=== PATIENT | male | born 1940 | race Caucasian/White ===

== ENCOUNTER → 2017-10-30 | Outpatient (CLI) | payer MEDICARE ==
--- NOTE | 2017-10-30 13:30 | CT ---
EXAMINATION TYPE: CT abdomen pelvis w con DATE OF EXAM: 10/30/2017 COMPARISON: CT abdomen and pelvis October 06, 2014. HISTORY: Renal and Prostate CA, history of surgical removal of both. CT DLP: 306.4 mGycm, Automated Exposure Control for Dose Reduction was Utilized. CONTRAST: CT scan of the abdomen and pelvis is performed with oral and with IV Contrast, patient injected with 100 mL of Isovue 300. FINDINGS: Patient has very little abdominal fat making evaluation suboptimal. LUNG BASES: Linear scarring in the lingula axial image 6 is redemonstrated. LIVER/GB: No significant abnormality is appreciated. PANCREAS: No significant abnormality is seen. SPLEEN: No significant abnormality is seen. ADRENALS: No significant abnormality is seen. KIDNEYS: Surgical clips from right-sided nephrectomy are redemonstrated. BOWEL: Oral contrast reaches mid to distal transverse colon level. There is no suspicious small or la rge bowel dilatation. Diverticula are seen throughout the colon most prominent in the sigmoid colon. There is no CT evidence for acute diverticulitis. PROSTATE/SEMINAL VESICLES: Prostate gland is surgically absent. Numerous clips in the lower pelvis ar e noted. LYMPH NODES: No greater than 1cm abdominal or pelvic lymph nodes are appreciated. OSSEOUS STRUCTURES: There is facet arthropathy lower lumbar levels. OTHER: No significant additional abnormality is seen. IMPRESSION: Overall stable findings from prior exam, surgical changes from right nephrectomy and pros tatectomy. No new suspicious mass or adenopathy is seen to suggest neoplastic recurrence.
== END | disposition home or self-care (01) ==
LOC: RADCTMAIN 10:47
PROVIDERS: ATTEND Urology
DX: C61 Malignant neoplasm of prostate (principal); C64.1 Malignant neoplasm of right kidney, except renal pelvis; Z90.5 Acquired absence of kidney; Z90.79 Acquired absence of other genital organ(s)
CPT/HCPCS: 82565; 84520; 74177; 36415; Q9967

== ENCOUNTER → 2019-01-11 | Outpatient (CLI) | payer MEDICARE ==
[2019-01-11 09:54] LABS: Potassium 4.6 mmol/L (3.5-5.1)
[2019-01-11 09:55] LABS: HCT 42.6 % (39.0-53.0); HGB 13.3 gm/dL (13.0-17.5); MCH 29.8 pg (25.0-35.0); MCHC 31.3 g/dL (31.0-37.0); MCV 95.3 fL (80.0-100.0); Mean Platelet Volume 8.5; Platelet Count 341 k/uL (150-450); RBC 4.47 m/uL (4.30-5.90); RDW 13.9 % (11.5-15.5); WBC 8.2 k/uL (3.8-10.6)
== END | disposition home or self-care (01) ==
LOC: LABPAT 09:07
PROVIDERS: ATTEND Internal Medicine Interventional Cardiology
DX: Z01.812 Encounter for preprocedural laboratory examination (principal); I25.10 Atherosclerotic heart disease of native coronary artery without angina pectoris
CPT/HCPCS: 36415; 80051; 82565; 84520; 85027

== ENCOUNTER 2019-01-13 06:19 | Day surgery (SDC) | payer MEDICARE ==
[2019-01-12 11:12] VITALS: BMI 17.8
[2019-01-13] MEDS ORDERED: ASPIRIN 325 MG TAB PO STA (06:29)
[2019-01-13] MEDS ORDERED: NITROGLYCERIN SL TABS 0.4 MG TAB SUBLINGUAL PRN ×3 (06:29→09:04)
[2019-01-13] MEDS ORDERED: ALPRAZolam 0.5 MG TAB PO PRN (06:29)
[2019-01-13] MEDS ORDERED: ATORVASTATIN 80 MG TAB PO STA (06:29)
[2019-01-13] MEDS ORDERED: SODIUM CHLORIDE 0.9% 1,000 ML in EMPTY BAG 1 BAG IV ONE (06:29)
[2019-01-13] MEDS ORDERED: ALPRAZolam 0.25 MG TAB PO PRN (06:29)
[2019-01-13] MEDS ORDERED: MIDAZOLAM (PF) 2 MG/2 ML VIAL IVP ONE (07:35)
[2019-01-13] MEDS ORDERED: LIDOCAINE 1% INJ 10MG/ML (20 ML MDV) SQ ONE (07:38)
[2019-01-13] MEDS ORDERED: VERAPAMIL SYRINGE (5 MG/10 ML) INTRAARTER ONE (07:40)
[2019-01-13] MEDS: HEPARIN SODIUM 1,000 UN/ML (10ML VL) IV ONE ×2 (07:42→08:20)
[2019-01-13] MEDS ORDERED: TICAGRELOR 90 MG TAB PO ONE (07:42)
[2019-01-13] MEDS ORDERED: NITROGLYCERIN 1000MCG/10ML SYRINGE INTRACORON ONE (08:08)
[2019-01-13] MEDS ORDERED: BIVALIRUDIN 250 MG VIAL IV ONE (08:15)
[2019-01-13] MEDS ORDERED: SODIUM CHLORIDE 0.9% 50 ML BAG ONE (08:15)
[2019-01-13] MEDS ORDERED: IOPAMIDOL-370 100ML BTL INJ ONE (08:18)
[2019-01-13] MEDS ORDERED: IOPAMIDOL-370 50ML BTL INJ ONE (08:19)
[2019-01-13] MEDS ORDERED: RX INFO: IV CONTRAST WAS GIVEN 1 EACH MISC MISCELLANE PRN (08:23)
[2019-01-13] MEDS ORDERED: ATROPINE SULFATE 0.1 MG/ML 10ML SYRINGE IV PRN (08:23)
[2019-01-13] MEDS ORDERED: MAG HYDROX/AL HYDROX/SIMETH 30 ML CUP PO PRN (08:23)
[2019-01-13] MEDS ORDERED: ZOLPIDEM 5 MG TAB PO PRN (08:23)
[2019-01-13] MEDS: SODIUM CHLORIDE 0.9% 1,000 ML IV SCH ×2 (08:55→19:35)
[2019-01-13] MEDS: ISOSORBIDE MONONITRATE ER 30 MG TAB.ER.24H PO SCH (09:26)
[2019-01-13] MEDS: ASPIRIN 81 MG PO SCH (09:26)
[2019-01-13] MEDS: METOPROLOL TARTRATE 12.5 MG TAB PO SCH (09:27)
[2019-01-13] MEDS: NICOTINE 21MG/24HR PATCH TRANSDERM SCH (09:40)
[2019-01-13] MEDS: SYMBICORT 160-4.5 MCG INHALER INHALATION SCH ×2 (10:06→19:00)
--- NOTE | 2019-01-13 11:12 | PTCA ---
PERCUTANEOUSTRANS CORORONARY ANGIOGRAPHY DATE OF SERVICE: 01/13/2019. PROCEDURES: 1. PTCA and stenting of calcified mid LAD with a drug-eluting stent. 2. PTCA and stenting of mid circumflex coronary artery with a drug-eluting stent. PERFORMED BY: Dr. Gladis Mejia. Moderate conscious sedation time was 40 minutes. Patient was administered Versed. His oxygen saturation, hemodynamics and EKG were monitored closely. CLINICAL INFORMATION: Mr. John Paul Baker is a 78-year-old gentleman with history of hypertension, hyperlipidemia, smoking and COPD who presented with unstable angina to [facility] last week, underwent cardiac cath which revealed total occlusion of the dominant RCA with _rich____collateralization of the left system. He had a mid LAD lesion of 80% in beyond heavily calcified area and also had a mid circumflex lesion of 70% to 75%. He was advised intervention and brought in for the procedure electively after due discussion regarding risks, benefits, and options. This gentleman has a single kidney with history of right nephrectomy in 2013 because of renal cell cancer. His creatinine was good. He was orally and intravenously hydrated and brought in for the procedure. PROCEDURE NOTE: Under local anesthesia and strict aseptic precautions, a 6-Divehi introducer was placed in the right radial artery. I used a JL3.5 curve left guide catheter to cannulate the left coronary artery. A run-through wire was used to cross the lesion in the LAD. A 2.5 caliber 12 mm NC Trek balloon was used to pre-dilate the mid LAD lesion. A 2.75 caliber 12 mm Xience stent was deployed at 13 atmospheres. Patient did not have any significant symptoms or EKG changes, but excellent angiographic result was achieved. Subsequently I turned my attention to the circumflex. The same run-through wire was used to cross the circumflex without predilatation. A 2.5 caliber 8 mm Xience stent was deployed at 13 atmospheres. Patient had mild discomfort in the chest but no EKG changes. Excellent angiographic result was achieved without complication. The sheath was then taken out and TR band applied as per protocol with saturation the fingers of the right hand of 93%. Patient tolerated procedure well without complications. The patient's LAD was stented with a drug-eluting stent and mid circumflex was stented with a drug-eluting stent. Excellent angiographic result was achieved. Results were discussed with the patient and family and I expect that he will be discharged tomorrow if he remains stable. MMJEANETHL / PATN: [id number] / ALEXI
[2019-01-13] MEDS ORDERED: amLODIPine 5 MG TAB PO SCH (12:00)
[2019-01-13] MEDS: ALBUTEROL NEBULIZED 2.5 MG/3 ML INHALATION PRN ×2 (15:36→19:00)
[2019-01-13] MEDS ORDERED: LOSARTAN 25 MG TAB PO SCH (21:00)
[2019-01-13] MEDS ORDERED: ATORVASTATIN 40 MG TAB PO SCH (21:00)
[2019-01-13 21:20] VITALS: RESP 18
[2019-01-14 07:15] LABS: African American GFR (CKD) >90 (>60 ml/min/1.73 sqM); Anion Gap 8 mmol/L; Blood Urea Nitrogen 14 mg/dL (9-20); Calcium 9.1 mg/dL (8.4-10.2); Carbon Dioxide 24 mmol/L (22-30); Chloride 109 mmol/L (98-107); Glucose 88 mg/dL (74-99); Potassium 4.1 mmol/L (3.5-5.1); Sodium 141 mmol/L (137-145)
[2019-01-14] MEDS: NICOTINE 21MG/24HR PATCH TRANSDERM SCH (08:22)
[2019-01-14 08:23] LABS: Basophils # (A) 0.1 k/uL (0-0.2); Basophils % (A) 1 %; Eosinophils # (A) 0.2 k/uL (0-0.7); Eosinophils % (A) 2 %; HGB 13.1 gm/dL (13.0-17.5); Lymphocytes # (A) 1.3 k/uL (1.0-4.8); Lymphocytes % (A) 14 %; MCH 30.3 pg (25.0-35.0); MCHC 32.8 g/dL (31.0-37.0); MCV 92.4 fL (80.0-100.0); Mean Platelet Volume 7.3; Monocytes # (A) 0.7 k/uL (0-1.0); Monocytes % (A) 8 %; Neutrophils # (A) 6.8 k/uL (1.3-7.7); Neutrophils % (A) 72 %; Platelet Count 355 k/uL (150-450); RBC 4.33 m/uL (4.30-5.90); RDW 14.1 % (11.5-15.5); WBC 9.4 k/uL (3.8-10.6)
[2019-01-14] MEDS: ASPIRIN 81 MG PO SCH (08:23)
[2019-01-14] MEDS: METOPROLOL TARTRATE 12.5 MG TAB PO SCH (08:24)
[2019-01-14] MEDS: ISOSORBIDE MONONITRATE ER 30 MG TAB.ER.24H PO SCH (08:24)
[2019-01-14] MEDS: SYMBICORT 160-4.5 MCG INHALER INHALATION SCH (08:49)
[2019-01-14 08:52] VITALS: BP 126/81; PULSE 64; TEMP 97.8
[2019-01-14] MEDS ORDERED: TICAGRELOR 90 MG TAB PO SCH (09:00)
[2019-01-14] MEDS ORDERED: ASPIRIN 81 MG PO SCH (09:00)
--- NOTE | 2019-01-14 12:22 | DS ---
DISCHARGE SUMMARY DATE OF ADMISSION: 01/13/2019 DATE OF DISCHARGE: 01/14/2019 DIAGNOSES: 1. Unstable angina. 2. Hypertension. 3. Hyperlipidemia. PROCEDURES PERFORMED: PTCA and stenting of mid LAD with a drug-eluting stent. PTCA and stenting of mid circumflex with a drug-eluting stent. Mr. Baker is a 78-year-old gentleman with history of hypertension, hyperlipidemia, COPD, and recent hospitalization with unstable angina, had a cardiac cath at [facility], which revealed total occlusion of RCA with collateralization from the left system. Mid LAD had a calcified area of 80% stenosis and mid circumflex had a 70% stenosis. Both of these were addressed yesterday electively. He was brought in for the procedure electively. He has history of right nephrectomy. The least amount of contrast was used. Two drug-eluting stents were deployed in the mid LAD and mid circumflex. Excellent angiographic result was achieved. Postprocedure course was uneventful. Right radial cath site is clean and dry with a good pulse. The patient is doing well without symptoms this morning. Blood pressure is 130/70, pulse rate is 64 per minute. EKG revealed sinus mechanism, no acute changes. LABORATORY DATA: So far, still pending. His renal function is good, but hemoglobin and platelet count is still pending. The patient had uneventful postprocedure course. He will be discharged today after checking his labs and I will see him in the office on 01/18/2019 at 8 am. Discharge instructions regarding activity, diet and medications were given. Patient was given prescription for Brilinta 90 mg b.i.d. along with aspirin 81 mg daily and all his other medications as before. MMODL / IJN: [id number] /
== END 2019-01-14 09:24 | disposition home or self-care (01) ==
LOC: CATHCVL 06:19 → 3SCARD 08:20 → CATHCVL 01-14 09:24
PROVIDERS: ATTEND Internal Medicine Interventional Cardiology
DX: I25.110 Atherosclerotic heart disease of native coronary artery with unstable angina pectoris (principal); I25.84 Coronary atherosclerosis due to calcified coronary lesion; I25.82 Chronic total occlusion of coronary artery; E78.5 Hyperlipidemia, unspecified; E78.00 Pure hypercholesterolemia, unspecified; J44.9 Chronic obstructive pulmonary disease, unspecified; Z87.891 Personal history of nicotine dependence; Z85.528 Personal history of other malignant neoplasm of kidney; Z90.5 Acquired absence of kidney; Z79.82 Long term (current) use of aspirin; Z79.51 Long term (current) use of inhaled steroids; Z79.899 Other long term (current) drug therapy
CPT/HCPCS: 94640 ×3; 85347; 80048; 85025; C9600 ×2; C1887; C1725; C1769; C1894; C1874; S4990 ×2; J2001; J1644; J0583; Q9967 ×2; J2250

== ENCOUNTER → 2019-09-22 | Outpatient (CLI) | payer MEDICARE | END | disposition home or self-care (01) | LOC: LABWHC1 10:42 | PROVIDERS: ATTEND Urology | DX: C61 Malignant neoplasm of prostate (principal) | CPT/HCPCS: 36415; 84153 ==

== ENCOUNTER → 2020-03-27 | Outpatient (CLI) | payer MEDICARE | END | disposition home or self-care (01) | LOC: LABWHC1 12:32 | PROVIDERS: ATTEND Urology | DX: C61 Malignant neoplasm of prostate (principal) | CPT/HCPCS: 36415; 84153 ==

== ENCOUNTER → 2020-04-10 | Outpatient (CLI) | payer MEDICARE ==
--- NOTE | 2020-04-10 15:45 | CT ---
EXAMINATION TYPE: CT chest w con DATE OF EXAM: 04/10/2020 COMPARISON: Chest x-ray November 05, 2009 HISTORY: cough, pneumonia CT DLP: 176.9 mGycm. Automated Exposure Control for Dose Reduction was Utilized. TECHNIQUE: CT scan of the thorax is performed following with IV Contrast, patient injected with 80cc mL of Isovue 300. FINDINGS: LUNGS: Hnfv-qe-qdzdesmd underlying emphysematous change. There is updc-qt-urlvrrab linear scarring or atelectasis in both bases near diaphragm. No suspicious focal groundglass opacity or consolidation. No concerning pulmonary nodules or masses. No pleural effusion or pneumothorax seen bilaterally. MEDIASTINUM: There are no greater than 1 cm hilar or mediastinal lymph nodes. No cardiomegaly or pe ricardial effusion is seen. Moderate to severe three-vessel coronary artery calcification and/or sujit nts. Scattered thyroid nodules. Some may be greater than 1.0 cm in size. Follow-up advised. Ascending aorta measures up to 4.0 cm diameter image 32. OTHER: Surgical clips from right-sided nephrectomy scoliotic curvature. Exaggerated thoracic kyphosis . Mild to moderate multilevel spurring in the spine. IMPRESSION: Mild to moderate Chronic emphysematous and pulmonary fibrotic changes without acute pulmo nary process. Ascending aortic aneurysm up to 4.0 cm in diameter. Thyroid nodules, advise thyroid ult rasound follow-up to better evaluate and characterize.
== END | disposition home or self-care (01) ==
LOC: RADCTMAIN 14:12
PROVIDERS: ATTEND Internal Medicine Geriatric Medicine
DX: J84.10 Pulmonary fibrosis, unspecified (principal); J43.9 Emphysema, unspecified; I71.2 Thoracic aortic aneurysm, without rupture
CPT/HCPCS: 82565; 84520; 71260; 36415; Q9967

== ENCOUNTER 2021-03-30 14:46 | Emergency (ER) | payer MEDICARE ==
[2021-03-30 15:25] VITALS: RESP 18; TEMP 98.3
[2021-03-30] MEDS ORDERED: traMADol 50 MG TAB PO STA ×2 (16:17→18:13)
--- NOTE | 2021-03-30 16:21 | ED ---
General Adult HPI - General Chief complaint: Fall Stated complaint: Fell Time Seen by Provider: 03/30/21 15:55 Source: patient, family Mode of arrival: wheelchair Limitations: no limitations - History of Present Illness Initial comments: Patient is a pleasant 80-year-old male presenting to the emergency department with left pelvic pain. Patient slipped and fell last night. Patient does occasionally fall and he has balance issues. Patient complains of discomfort left buttocks/pelvic region. Discomfort is greatly increased with attempted ambulation. No head injury or loss of consciousness. No other area of injury or concern. Patient did take Tylenol at 10 AM and does not want any further pain medication at this time. - Related Data Home Medications Medication Instructions Recorded Confirmed Albuterol Inhaler (Mhu) [Ventolin 1 - 2 puff INHALATION RT-Q6H PRN 01/12/19 01/12/19 Hfa Inhaler (Mhu)] Albuterol Nebulizer 1 dose PO DIRECTED PRN 01/12/19 01/13/19 Aspirin [Adult Low Dose Aspirin EC] 81 mg PO DAILY 01/12/19 01/13/19 Atorvastatin [Lipitor] 40 mg PO HS 01/12/19 01/13/19 Budesonide-Formot 160-4.5 Mcg 2 puff INHALATION BID 01/12/19 01/13/19 [Symbicort 160-4.5 Mcg Inhaler] Isosorbide Mononitrate [Isosorbide 30 mg PO DAILY 01/12/19 01/13/19 Mononitrate ER] Losartan [Cozaar] 25 mg PO HS 01/12/19 01/13/19 Metoprolol Tartrate [Lopressor] 12.5 mg PO DAILY 01/12/19 01/13/19 Nicotine 21Mg/24Hr Patch [Habitrol] 1 each TRANSDERM DAILY 01/12/19 01/13/19 Nitroglycerin Sl Tabs [Nitrostat] 0.4 mg SUBLINGUAL Q5M PRN 01/12/19 01/13/19 amLODIPine [Norvasc] 5 mg PO DAILY@1200 01/12/19 01/13/19 Previous Rx's Medication Instructions Recorded Ticagrelor [Brilinta] 90 mg PO BID #30 tab 01/14/19 Ibuprofen [Motrin] 600 mg PO Q6HR PRN #20 tab 03/30/21 Allergies Allergy/AdvReac Type Severity Reaction Status Date / Time No Known Allergies Allergy Verified 03/30/21 15:25 Review of Systems ROS Statement: Those systems with pertinent positive or pertinent negative responses have been documented in the HPI. ROS Other: All systems not noted in ROS Statement are negative. Constitutional: Denies: fever Eyes: Denies: eye pain ENT: Denies: ear pain Respiratory: Denies: cough Cardiovascular: Denies: chest pain Endocrine: Denies: fatigue Gastrointestinal: Denies: abdominal pain Genitourinary: Denies: dysuria Musculoskeletal: Reports: as per HPI. Denies: back pain Skin: Denies: rash Neurological: Denies: weakness Past Medical History Past Medical History: Cancer, Chest Pain / Angina, COPD, Hyperlipidemia, Hypertension Additional Past Medical History / Comment(s): hx of prostate cancer (surgery 2005), right kidney cancer (surgery 2012), multiple skin cancers (basal & squamous cell)- recent radiation right ríos skin cancer-not healed yet., hospitalized at [facility] for chest pain and heart cath 01/05/19 to 02/07/19. History of Any Multi-Drug Resistant Organisms: None Reported Past Surgical History: Heart Catheterization, Hernia Repair, Orthopedic Surgery, Prostate Surgery, Tonsillectomy Additional Past Surgical History / Comment(s): Hemorrhoids, Right Kidney removed,ear mastoid , rotator cuff, inguinal hernia, Mesh implant for Bladder., Heart Cath at [facility] (Dec 2018) Past Anesthesia/Blood Transfusion Reactions: No Reported Reaction Past Psychological History: No Psychological Hx Reported Past Alcohol Use History: Occasional Past Drug Use History: None Reported - Past Family History Mother Family Medical History: No Reported History General Exam Limitations: no limitations General appearance: alert, in no apparent distress Head exam: Present: atraumatic Eye exam: Present: normal appearance Neck exam: Present: normal inspection. Absent: tenderness Respiratory exam: Present: normal lung sounds bilaterally Cardiovascular Exam: Present: regular rate, normal rhythm Expanded Peripheral pulses: 2+: Posterior Tibialis (L), Dorsalis Pedis (L) GI/Abdominal exam: Present: soft. Absent: tenderness Extremities exam: Present: full ROM (No discomfort with passive range of motion. Severe discomfort with active range of motion. Distally the patient is neurovascular intact.), tenderness (Minimal tenderness left hip, mild tenderness left superior pubic rami. Moderate to severe tenderness left ischial tuberosity) Back exam: Present: normal inspection. Absent: vertebral tenderness Neurological exam: Present: alert. Absent: motor sensory deficit Psychiatric exam: Present: normal affect, normal mood Skin exam: Present: normal color Course Vital Signs 03/30/21 03/30/21 15:20 16:52 Temperature 98.3 F Pulse Rate 86 Respiratory 18 18 Rate Blood Pressure 118/74 O2 Sat by Pulse 90 L Oximetry - Reevaluation(s) Reevaluation #1: 03/30/21 16:18 Patient is now receptive to pain medication 03/30/21 16:24 Patient has chronic lung problems with questionable lung mass. Patient and family refused chest x-ray or COVID-19 testing. Patient states only minimal cough. No dyspnea. Medical Decision Making - Medical Decision Making Patient reevaluated and resting comfortably in bed. Patient and family updated on results. They're comfortable with attempted discharge home and advised to return if patient unable to walk or take care of himself. - Radiology Data Radiology results: report reviewed (Computed tomography scan reveals no acute abnormality), image reviewed (Left hip and pelvis negative for fracture) Disposition Clinical Impression: Fall, Contusion, hip Disposition: HOME SELF-CARE Condition: Stable Instructions (If sedation given, give patient instructions): Fall Prevention (ED), Hip Contusion (ED) Additional Instructions: Please follow-up with primary care physician beginning of the week. Return for increased pain, weakness, unable to walk or take care of herself, worsening symptoms or other concerns. Prescription has been sent to pharmacy. Crsq-bvz-iqtadio Tylenol as needed. Sqto-vvr-vkwiqux lidocaine patches as needed. Prescriptions: Ibuprofen [Motrin] 600 mg PO Q6HR PRN #20 tab PRN Reason: Pain Is patient prescribed a controlled substance at d/c from ED?: No Referrals: Blane Abbasi MD [Primary Care Provider] - 1-2 days Time of Disposition: 19:29
--- NOTE | 2021-03-30 16:59 | XR ---
EXAMINATION TYPE: XR Hip LT and AP Pelvis DATE OF EXAM: 03/30/2021 COMPARISON: NONE HISTORY: Hip pain TECHNIQUE: 3 views FINDINGS: Pelvic ring is intact. Proximal left femur and hip joint appear intact. There is no hip dys plasia. There is moderate vascular calcification. There are numerous surgical clips in the pelvis. IMPRESSION: No acute abnormality the pelvis and left hip. No fracture.
--- NOTE | 2021-03-30 19:06 | CT ---
EXAMINATION TYPE: CT pelvis wo con DATE OF EXAM: 03/30/2021 COMPARISON: CT abdomen pelvis 10/30/2017 HISTORY: Fall, pain in LT hip CT DLP: 344.4 mGycm Automated exposure control for dose reduction was used. Images obtained from the iliac crests to the subtrochanteric femurs with no contrast. There is no evidence of a pelvic mass. There is some retained fecal material in the rectum. There are multiple sigmoid diverticula. There is vascular calcification in the pelvis. There is no ascites. Th ere is no sign of free air. Sacroiliac joints are intact. The pelvic ring appears intact. Proximal femurs are intact. There are s pondylotic changes in the lower lumbar spine. Hip joint spaces are fairly normal. There is no hip dysplasia. IMPRESSION: Atherosclerotic vascular disease. Sigmoid diverticulosis. No fracture. No significant bony abnormality. No significant hip joint abnormality.
[2021-03-30] MEDS ORDERED: KETOROLAC 15 MG/ML 1 ML VIAL IM STA (19:28)
[2021-03-30] MEDS ORDERED: MORPHINE SULFATE 4 MG/ML SYRINGE IM STA (19:28)
[2021-03-30] MEDS ORDERED: traMADol 50 MG STARTER PACK 3 TAB BTL PO STA (19:28)
[2021-03-30] MEDS ORDERED: LIDOCAINE 5% PATCH TOPICAL STA (19:29)
[2021-03-30 19:51] VITALS: BP 124/84; PULSE 78
== END 2021-03-30 19:55 | disposition home or self-care (01) ==
LOC: EC 14:46
DX: S70.02XA Contusion of left hip, initial encounter (principal); J44.9 Chronic obstructive pulmonary disease, unspecified; E78.5 Hyperlipidemia, unspecified; I10 Essential (primary) hypertension; Z79.82 Long term (current) use of aspirin; Z85.46 Personal history of malignant neoplasm of prostate; Z85.528 Personal history of other malignant neoplasm of kidney; Z90.89 Acquired absence of other organs; Z90.5 Acquired absence of kidney; W01.0XXA Fall on same level from slipping, tripping and stumbling without subsequent striking against object, initial encounter
CPT/HCPCS: 99284; 96372 ×2; 73502; 72192; J2270; J1885